=== PATIENT | female | born 1965 | race Caucasian/White ===

== ENCOUNTER → 2016-11-08 | Outpatient (CLI) | payer BC, OTHER ==
[~2016-11-08] VITALS: Ht 165.1 cm; Wt 103.0 kg
[~2016-11-08] MED LIST: COLACE 100 MG100 MG PO; FLEXERIL PO; GILENYA0.5 MG PO; HYDROCODON-ACE1 EAC5 PO; HYDROCODONE-AP1 EAC6 PO; NORCO 5-325 TA1 EACH PO; OXYCODONE PO; OXYCONTIN10 M1 PO; VITAMIN B-12500 MCG PO; VITAMIN D-32000 UNIT PO
--- NOTE | ~2016-11-08 | HPC ---
[facility] [place] [address] PAIN MANAGEMENT CONSULTATION Name: GABE PERSAUD Room #: REG [facility] Tirso#: [id number] Admission: 11/08/16 Attend Phys: Terrence Olivares DO Discharge: Date of : 61 Report #: [id number] THIS REPORT FOR: //name// CC: [facility] physician/PCP Sanjay Olivares The patient is a 51-year-old female seen in consultation at the request of Dr. Siegel's office for evaluation of pain to low back, left side, nonradiating, exacerbated with sitting and some relief with ice. The patient had prior been seen by Dr. Patrick Sheridan, had left-sided radiofrequency neurolysis at L2, L3, L4 and L5 back in April of 2015. Progressed to have lumbar decompression, left side L4-L5 with fusion L4 through L5, 06/13/2015. The patient notes after about 6 months, pain improved. She had good relief for about 6 months and then pain has recurred again. This is in the low back, left side, nonradiating. She uses a cane in her right hand, though she does have a long history of multiple sclerosis and uses a cane both for axial back pain as well as some weakness and multiple sclerosis. She describes constant aching pain that she rates anywhere from 7-10 on a 0-10 visual analog scale. REVIEW OF SYSTEMS: Complete review of systems attached to chart and gone over with the patient. She is single. She does not smoke, drink alcohol to excess. Long history of multiple sclerosis, currently takes Gilenya for same. Prior history of ulcerative colitis though this was treated conservatively and she has really been fairly symptomatic for quite some time. She has had multiple orthopedic surgeries, list is attached to the chart. 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 She has continued to work despite pain, though she has lost some time secondary to surgeries. She notes that sitting at work, however, does significantly exacerbate her pain. Pain impact score averages about 5.2 for all indices queried. PHYSICAL EXAMINATION: Reveals a 5 feet 5 inches, 220 pound female, BMI is 37.8 kilograms per meter squared. Blood pressure is within normal limits, pulse is 78, respirations 16. Cranial nerves 2-12 are grossly intact. Pupils are equal, reactive to light and accommodation. Extraocular muscles are intact. Thyroid is enlarged, no nodules are noted. Heart is regular and rhythmical with a grade 2/6 systolic ejection murmur. Lungs are clear to auscultation. Has an endomorphic build. Upper extremity strength is preserved. Rises from chair using armrest, markedly antalgic gait. Tender in the low back from about L4 down bilaterally. Left leg is diminished in strength compared to the right, perhaps 3/5 to all muscle groups tested, 4/5 on the right side. She notes this is chronic and she notes it was concurrent with the onset of her multiple sclerosis. Patellar reflex 1/4 on the right, 2/4 on the left. [place] [address] [address] PAIN MANAGEMENT CONSULTATION Name: GABE PERSAUD Angel Room #: REG BILLIE Chahal#: [id number] Admission: 11/08/16 Attend Phys: Terrence Olivares DO Discharge: Date of : 61 Report #: [id number] reflexes are symmetric. Straight leg raise is negative. Osmar test is grossly positive on left. Diffuse tenderness across the low back. Pain is exacerbated with forward bending. DIAGNOSTIC STUDIES: Include MRI of the lumbar spine from 07/17/2015 noting L4-L5 pedicle screws with fixation. L5-S1 has facet degenerative changes. No significant stenosis is noted. There is some mild narrowing at L4-L5. ASSESSMENT: Symptomatic lumbar spondylosis, lumbosacral spondylosis in a patient status post lumbar decompressive laminectomy and fusion at L4-L5. RECOMMENDATIONS: I had a long discussion with the patient today about therapeutic options. I believe she would benefit from bilateral L5-S1 facet joint and left SI joint injection under fluoroscopy. We will seek authorization for same. If this affords correction relief, we will refer the patient to physical therapy for core strengthening. If this affords only transient relief, we can move forward with medial branch dorsal rami diagnostic block (bilateral L4 and L5 along with left-sided L5, S1, S2 medial branch dorsal rami and consideration of radiofrequency neurolysis of same. Thank you for allowing me to participate. We also discussed spinal cord stimulator as a possible therapeutic option for treatment of ongoing axial pain status post lumbar decompressive laminectomy. Thank you for allowing me to participate in the patient's care. I will keep you abreast of her progress. We will presently seek authorization for bilateral L5-S1 facet joint and left SI joint injection under fluoroscopy at next visit. <ELECTRONICALLY SIGNED> By: Terrence Olivares DO 11/13/16 1607 1212 1331 Terrence Olivares DO /nt
== END | disposition home or self-care (01) ==
LOC: PAIN 10-25 11:38
DX: M47.896 Other spondylosis, lumbar region (principal); M54.5 Low back pain; Z98.890 Other specified postprocedural states

== ENCOUNTER → 2016-11-29 | Outpatient (CLI) | payer BC, OTHER ==
[~2016-11-29] VITALS: Ht 162.6 cm; Wt 102.4 kg
--- NOTE | ~2016-11-29 | HPC ---
[facility] [place] [address] PAIN MANAGEMENT CONSULTATION Name: GABE PERSAUD Room #: REG [facility] Tirso#: [id number] Admission: 11/29/16 Attend Phys: Terrence Olivares DO Discharge: Date of : 61 Report #: [id number] THIS REPORT FOR: //name// CC: [facility] physician/PCP Terrence Olivares The patient is a 51-year-old female previously seen in the pain clinic 11/08/2015. She was seen in consultation at that time. Diagnosed with symptomatic lumbar spondylosis, lumbosacral spondylosis, status post lumbar decompressive laminectomy requiring complex medication management. The patient presents to pain clinic today for bilateral L5-S1 and left SI joint injection under fluoroscopy. She is also requesting that I take over management of her opiate, which has been hydrocodone 5/325 up to [address] Siegel's office. We did briefly discuss risks and concerns of opiate habituation, tolerance, etc. I will renew her prescription today, hydrocodone 5/325, 90 tablets, one tablet 3 times a day with no refill. Follow up in 1 month for reevaluation. We will specifically review an opiate consent to treat contract at that time. 1. ASSESSMENT: Lumbosacral spondylosis. PROCEDURE: Bilateral L5-S1 facet joint injection under fluoroscopy. DESCRIPTION OF PROCEDURE: After written informed consent was obtained, the patient was taken to the fluoroscopy suite and placed in prone position. After sterile prep and drape, skin wheal was raised. Two 22-gauge stylet needle was placed to contact the posterior inferior aspect of the left L5-S1 and right L5-S1 facet joint. AP and lateral projections showed good needle placement. Negative aspiration was accomplished. A 20 mg triamcinolone plus 1 mL of 0.5% preservative-free bupivacaine was injected at each site. [place] was removed, attention was directed at the left SI joint. 2. ASSESSMENT: Lumbosacral spondylosis, SI joint dysfunction. PROCEDURE: Left SI joint injection under fluoroscopy. DESCRIPTION OF PROCEDURE: After initial bilateral L5-S1 facet joint injection was accomplished attention was then directed at the left SI joint. This was cleansed in the original skin prep, skin wheal with Xylocaine was raised. A 22-gauge stylet needles was placed to contact the inferior aspect of the left SI joint. Negative aspiration was accomplished. 40 mg triamcinolone plus 2 mL of 0.5% preservative-free bupivacaine was injected into and around the joint. [place] removed. The area was cleansed, Band-Aids applied. The patient was allowed to ambulate to recovery room, monitored for an appropriate period of time, discharged in good and stable condition, noting dramatic improvement of baseline pain, in fact noting pain is generally absent on discharge. We will have the patient follow up in about 3-4 weeks for reevaluation. If she has [address] [address] PAIN MANAGEMENT CONSULTATION Name: GABE PERSAUD Room #: REG [facility] Chahal#: [id number] Admission: 11/29/16 Attend Phys: Terrence Olivares DO Discharge: Date of : 61 Report #: [id number] ongoing relief, we will refer to physical therapy for core strengthening. If she only gets transient relief with this injection, we will consider moving forward with medial branch dorsal rami diagnostic blocks and RFL. She currently had this prior to her back surgery several years ago and did have about 9 months overall relief. <ELECTRONICALLY SIGNED> By: Terrence Olivares DO 12/02/16 1228 1650 0526 Terrence Olivares DO /nt
[2016-11-29 14:47] VITALS: BP 143/88
== END | disposition home or self-care (01) ==
LOC: PAIN 11-15 07:12
DX: M53.3 Sacrococcygeal disorders, not elsewhere classified (principal); M47.817 Spondylosis without myelopathy or radiculopathy, lumbosacral region
CPT/HCPCS: 64493; G0260

== ENCOUNTER → 2017-01-16 | Outpatient (CLI) | payer BC, OTHER ==
[~2017-01-16] VITALS: Ht 165.1 cm; Wt 98.7 kg
--- NOTE | ~2017-01-16 | HPC ---
[address] [place] [address] PAIN MANAGEMENT CONSULTATION Name: GABE PERSAUD Angel Room #: REG BILLIE Chahal#: [id number] Admission: 01/16/17 Attend Phys: Terrence Olivares DO Discharge: Date of : 61 Report #: [id number] THIS REPORT FOR: //name// CC: [facility] physician/PCP Vesta Olivares The patient is a 51-year-old female. Prior seen in the pain clinic on 12/30/2016. The patient had initially been seen in consultation on 11/08/2016, diagnosed with symptomatic lumbar spondylosis, lumbosacral spondylosis, status post lumbar decompressive laminectomy (L4-L5 fusion). We progressed to perform bilateral L5-S1 facet joint and left SI joint injections on 11/29/2016. The patient returned to the pain clinic on 12/30/2016 noting nearly 100% relief for 2-1/2 weeks. Pain had recurred primarily left-sided. I performed left L4, L5, S1 and S2 medial branch dorsal rami diagnostic blocks. The patient returned to the pain clinic today. We had a prolonged visit from 10:10-10:35, reviewing interval issues and discussing therapeutic options. The patient notes that the prior diagnostic block afforded near 100% relief for several hours and pain began to recur. The patient notes pain is in the low back, left greater than right. She has used nonsteroidal anti-inflammatory medications as much as she can, however, they do cause gastritis and she has to use them on a more intermittent basis. She has used muscle relaxers and analgesic (Flexeril and hydrocodone) on a p.r.n. basis. She has continued to do physical therapy, stretching exercises that she had learned from organized physical therapy sessions prior to her back surgery in June 2015. Currently, the patient notes pain to 7/10, again fairly constant since her fusion in June 2015, left much worse than right. PHYSICAL EXAMINATION: Shows a pleasant 51-year-old female, BMI is 36.2 kilograms per meter squared. Blood pressure 140/95, pulse 83, respirations 16. She has fairly profound weakness in the left leg to hip flexion, literally 1/5 strength. Lower extremity extension and dorsiflexion is about 3/5 on the left side. The right leg is fairly robust with 4/5 strength to hip flexion, lower extremity extension and dorsiflexion, plantarflexion. The patient is concerned that this may be an exacerbation of her multiple sclerosis or simply a radicular component. Reviewed diagnostic findings, MRI had been accomplished on 07/17/2015, noting pedicle screws and posterior luz fixation at L4-L5 and L5-S1, noted moderate disk bulging with endplate degenerative changes, L4-L5 noted surgical changes primarily left-sided. ASSESSMENT: [facility] [address] [place] [address] PAIN MANAGEMENT CONSULTATION Name: GABE PERSAUD Angel Room #: REG BILLIE Chahal#: [id number] Admission: 01/16/17 Attend Phys: Terrence Olivares DO Discharge: Date of : 61 Report #: [id number] 1. Symptomatic lumbar radiculopathy, status post decompressive laminectomy. 2. Component of lumbar spondylosis and lumbosacral spondylosis. RECOMMENDATION: Had long discussion with the patient today about therapeutic options. I strongly recommend she follow up with her neurosurgeon regarding the increasing weakness in the left hip flexor. Again, she has some compromise at the L4-L5 disk space subsequent to her fusion. She may have increasing scar tissue here. May benefit from an MRI with and without contrast, however, given the fairly significant weakness, I would want to ensure that there is no other demyelinating issue. An EMG may yield more information. From a pain standpoint, she shows significant pain in the left low back compatible with primarily L5-S1 facet arthrosis, lumbar spondylosis. Given the good relief with the L4-L5 medial branch dorsal rami diagnostic block, we have elected to move forward with neurolysis of same, authorization code from [facility] is [id number]. They have denied radiofrequency neurolysis for the SI component, dorsal rami at S1 and S2. The patient was discharged in good and stable condition today after prolonged visit, spent reviewing current issues. We will plan on moving forward with RFL left L4-L5 medial branch dorsal rami next week and have patient followup with her neurologist regarding increasing weakness in the left thigh. By: 1522 0011 Terrence Olivares DO /nt
== END | disposition home or self-care (01) ==
LOC: PAIN 06:36
DX: M47.896 Other spondylosis, lumbar region (principal); G89.29 Other chronic pain; M47.897 Other spondylosis, lumbosacral region; Z98.890 Other specified postprocedural states

== ENCOUNTER → 2017-01-24 | Outpatient (CLI) | payer BC, OTHER ==
[~2017-01-24] VITALS: Ht 165.1 cm; Wt 100.8 kg
--- NOTE | ~2017-01-24 | HPC ---
[facility] [place] [address] PAIN MANAGEMENT CONSULTATION Name: GABE PERSAUD Room #: REG BILLIE Chahal#: [id number] Admission: 01/24/17 Attend Phys: Terrence Olivares DO Discharge: Date of : 61 Report #: [id number] THIS REPORT FOR: //name// CC: [facility] physician/PCP Terrence Olivares The patient is a 51-year-old female being treated for lumbar spondylosis, history of lumbar radiculopathy secondary to spinal stenosis with an L4-L5 fusion, SI joint dysfunction. She has prior had a diagnostic medial branch blocks 11/29, 12/30. We reviewed 01/16/2017 therapeutic intervention. She has pain coming from SI and L5-S1 facet joint. Current insurer [employer] will not allow RF of the SI joint; however, to have allowed us to proceed with medial branch dorsal rami lesioning at L4-L5 intervening the L5-S1 joint. I think this is at least large part of the pain generator. The patient presents to pain clinic today for this procedure. She understands risks of lack of efficacy, increased pain and weakness. She does have ongoing weakness in the left leg by physical exam prior to the procedure. She rates the pain as 7 on a 0-10 visual analog scale. PROCEDURE: Radiofrequency lesioning L4-L5 medial branch dorsal rami. INDICATIONS: Symptomatic lumbar spondylosis, left L5-S1. PROCEDURE: After written informed consent was obtained, the patient was taken to the fluoroscopy suite and placed in prone position. After sterile prep and drape, 2 skin wheals were raised. 15 mm RFK needles were placed to contact the left sacral alar notch, second needle was placed lateral to the superior articular process of L5 at the L4-L5 facet joint. AP and lateral projections showed good needle placement adjacent to the L4 medial branch dorsal rami and L5 dorsal rami nerves. An appropriate interventions, sensory and motor testing was accomplished. A 1 mL of 1% preservative-free Xylocaine was injected through each needle. Both needles were heated to 80 degrees centigrade for 90 seconds. A 20 mg triamcinolone plus 1 mL of 0.5% preservative-free bupivacaine was injected through each needle. Both needles removed. The area was cleansed, Band-Aids applied. The patient monitored for an appropriate period of time, discharged in good and stable condition. Fluoroscopy time was 12 seconds. Followup as needed. <ELECTRONICALLY SIGNED> By: Terrence Olivares DO 01/27/17 1130 1054 1315 Terrence Olivares DO /nt
[2017-01-24 14:48] VITALS: BP 135/78
== END | disposition home or self-care (01) ==
LOC: PAIN 07:31
DX: M47.817 Spondylosis without myelopathy or radiculopathy, lumbosacral region (principal); M19.90 Unspecified osteoarthritis, unspecified site

== ENCOUNTER → 2017-02-07 | Outpatient (CLI) | payer BC, OTHER | LOC: RAD 15:36 | DX: M54.16 Radiculopathy, lumbar region (principal); M54.9 Dorsalgia, unspecified ==

== ENCOUNTER → 2017-02-18 | Outpatient (CLI) | payer BC, OTHER | END | disposition home or self-care (01) | LOC: RAD 08:31 | DX: M48.06 Spinal stenosis, lumbar region (principal) ==

== ENCOUNTER → 2017-02-21 | Outpatient (CLI) | payer BC, OTHER ==
[~2017-02-21] VITALS: Ht 165.1 cm; Wt 96.6 kg
--- NOTE | ~2017-02-21 | HPC ---
[facility] [place] [address] PAIN MANAGEMENT CONSULTATION Name: GABE PERSAUD Angel Room #: REG BILLIE Chahal#: [id number] Admission: 02/21/17 Attend Phys: Terrence Olivares DO Discharge: Date of : 61 Report #: [id number] THIS REPORT FOR: //name// CC: [facility] physician/PCP Terrence Olivares The patient is a very pleasant 51-year-old female, being treated for symptomatic lumbar radiculopathy status post decompressive laminectomy and fusion with a component of lumbar spondylitic pain. I initially saw the patient in consultation in November of this year. With fusion at L4-L5 and some low back pain, we talked about possible component of the axial pain coming from facet pain from L5-S1. She had prior had radiofrequency neurolysis in 2014 of pretty much all of her lumbar spine. She progressed to have the aforementioned L4-L5 fusion with anterior disk spacer, 06/13/2015. She notes pain improved initially, but she had had some left low back pain and some weakness in the left leg, though she attributed the weakness to her longstanding multiple sclerosis. I proceeded on 11/29/2016, to perform left L5-S1 and SI joint injections. She had good relief with this, though it was transient on 12/30/2016. I proceeded with left L4, L5, S1-S2 medial branch dorsal rami diagnostic block which gave her good relief. We had planned on moving forward with radiofrequency neurolysis of the innervation of the left L5-S1 and left SI joint. Unfortunately, insurance company only authorized the L5-S1 neurolysis, so we progressed on 01/24/2017 with left L4-L5 medial branch dorsal rami neurolysis. He returns to pain clinic today noting she had some good relief transiently with local anesthetic, but really no nursing home relief overall. Bigger complaint is not only left low back pain, but ongoing left radicular pain with weakness in the left thigh. I ordered a CT which was accomplished on 02/18/2017. We reviewed the CT myelogram today. It shows postoperative changes of the interval posterior lumbar fusion, left laminectomy and diskectomy at L4-L5 with bilateral luz and pedicle screw fixation hardware intact, without evidence of hardware failure. This was compared to a prior CT from 05/30/2015. The reading, however, goes on. Note that there is a hyperdense disk prosthesis at the L4-L5 level which "has an unusual appearance, appearing somewhat rotated clock lamas with a portion of the spacer rotated to the left posterolateral cortical margin and extending into the left lateral recess. There was associated abutment of the left ventral thecal sac and probable abutment of the central left L5 nerve root. I reviewed these findings with the patient today. PHYSICAL EXAMINATION: Again notes pleasant 51-year-old female, BMI is 35.4 kilograms per meter squared. Using a cane in her right hand. Vital signs show modest hypertension at 142/94, pulse is 83, respirations are 20[place] [address] PAIN MANAGEMENT CONSULTATION Name: AURORAVIKASGABE Room #: REG BILLIE Chahal#: [id number] Admission: 02/21/17 Attend Phys: Terrence Olivares DO Discharge: Date of : 61 Report #: [id number] chair using armrest. Antalgic gait, diffuse tenderness across the low back, significant weakness of his left hip flexion, lower extremity extension, about 3/5 versus 4-5/5 on the right. Lower extremity extension about 3/5 as well. Similarly stronger on the right. ASSESSMENT: Symptomatic lumbar radiculopathy, sacroiliac joint dysfunction, lumbar spondylosis, status post L4-L5 fusion and disk replacement. RECOMMENDATION: I suggested she follow up with Dr. Siegel regarding the disk prosthesis. This may or may not be amenable to revision. If pain continues as a problem, we talked about therapeutic options including medication management (she currently takes low dose hydrocodone 5/325 infrequently and p.r.n. Flexeril, does not require renewal of these prescriptions). We talked about spinal cord stimulator as possible therapeutic option to help with pain management. The patient was discharged in good and stable condition. She was seen for greater than 25 minutes from 15:08 to 15:40. Greater than 50% of the 25+ minute visit was spent counseling the patient. <ELECTRONICALLY SIGNED> By: Terrence Olivares DO 02/24/17 1538 1604 2034 Terrence Olivares DO /nt
[2017-02-21 15:00] VITALS: BP 142/94
== END ==
LOC: PAIN 06:56
DX: M47.26 Other spondylosis with radiculopathy, lumbar region (principal); M96.1 Postlaminectomy syndrome, not elsewhere classified; I10 Essential (primary) hypertension; M53.3 Sacrococcygeal disorders, not elsewhere classified

== ENCOUNTER → 2017-04-10 | Outpatient (CLI) | payer BC, OTHER ==
[~2017-04-10] VITALS: Ht 165.1 cm; Wt 98.0 kg
[~2017-04-10] MED LIST changes: +HYDROCODONE-APA1 TA1 PO
--- NOTE | ~2017-04-10 | HPC ---
[facility] [address] [place] [address] PAIN MANAGEMENT CONSULTATION Name: GABE PERSAUD Room #: REG [facility] Tirso#: [id number] Admission: 04/10/17 Attend Phys: Terrence Olivares DO Discharge: Date of : 61 Report #: [id number] THIS REPORT FOR: //name// CC: [facility] physician/PCP Terrence Olivares The patient is a 51-year-old female, typically treated for chronic pain syndrome, status post lumbar decompressive laminectomy, history of multiple sclerosis, requiring complex medication management. She had an extensive fusion at L4-L5 on 06/13/2015, ongoing back pain. We did a left L4-L5 transforaminal epidural injection with transient improvement on 01/24/2017. She was last seen in the pain clinic on 02/21/2017, continued on low dose hydrocodone 5/325. She returns to the pain clinic today stating she had followed up with Dr. Saroj Hoffmann, he is planning on a fairly significant surgical revision of the current hardware in the lumbar spine. This is scheduled for 05/07/2017. She notes pain is a 6/10, low lumbar, left side worse than right, down the left leg to the knee. Pain is chronic, aching, burning sensation. Exacerbated with standing and walking. PHYSICAL EXAMINATION: Shows a 51-year-old female, BMI is 36 kg/m2. Vital signs are stable as noted on the EMR. Rises from chair using armrest. She uses a cane. Diffuse tenderness across the low back. No discrete trigger points are noted. We reviewed the fact that opiate medications are being used to provide analgesia adequate to support activities of daily living, not attempting to achieve a specific pain score on the 0-10 Visual Analog Scale. The current opiate medications are providing sufficient analgesia to allow the patient to participate in activities of daily living. The patient is not exhibiting any aberrant behavior suggestive of drug diversion. The patient is not having any adverse reactions to medications. The patient is not suffering from daytime somnolence or mental acuity changes. The patient is managing opiate-induced constipation with appropriate oxwq-pmu-seiefda agents and dietary considerations. The patient was counseled on concern for caution with operating a motor vehicle while using opiate medications. A physical exam was performed and the patient's functional status was evaluated. All patients with back pain were advised against the bed rest greater than 4 days and were advised to return to normal activities. Pain score assessment was noted and the treatment plan was reviewed with the patient. All current medications, both prescribed and OTC were reviewed and reconciled on the electronic medical record. Tobacco screening was accomplished and smoking cessation was advised when indicated. BMI was noted and diet/exercise modification was recommended for all patients following outside normal parameters. [address] [address] PAIN MANAGEMENT CONSULTATION Name: GABE PERSAUD Angel Room #: REG [facility] Tirso#: [id number] Admission: 04/10/17 Attend Phys: Terrence Olivares DO Discharge: Date of : 61 Report #: [id number] I reviewed with the patient today their responsibilities to safeguard prescription medications, reviewed their responsibility to utilize medications only as prescribed by the physician. They are to seek and receive pain medications only from 1 physician group ( [facility]). They are to use 1 pharmacy and keep the clinic informed if they change pharmacies. Their responsibilities include making followup visits in a timely fashion and to avoid abrupt discontinuation of medication usage. Their responsibilities further include bringing their medications (bottles from the pharmacy with residual pills) to the visit for possible confirmation of pill counts and the patient understands it is their responsibility to submit to random drug screens to ensure both that the medications prescribed are present, and that no other controlled substances are present. All prescriptions provided today were generated electronically. ASSESSMENT AND PLAN: Symptomatic lumbar radiculopathy, status post decompressive laminectomy; comorbidity includes multiple sclerosis, requiring complex medication management. RECOMMENDATIONS: We have elected to continue hydrocodone 5/325 one tablet up to 3 times a day. I have taken the liberty of writing for a 4-week release prescription (actually release 05/05/2017) for postoperative pain, hydrocodone 7.5/325 one tablet up to 4 times a day, limit 120 tablets. We will follow up 1 month after her back surgery, we will try and wean back to hydrocodone 5/325 at that time. Discharged in good and stable condition. <ELECTRONICALLY SIGNED> By: Terrence Olivares DO 04/11/17 0948 1514 1552 Terrence Olivares DO /nt
[2017-04-10 14:04] VITALS: BP 141/87
== END ==
LOC: PAIN 07:08
DX: M54.16 Radiculopathy, lumbar region (principal); G35 Multiple sclerosis

== ENCOUNTER → 2018-01-02 | Outpatient (CLI) | payer BC, OTHER ==
[~2018-01-02] VITALS: Ht 165.1 cm; Wt 94.8 kg
[~2018-01-02] MED LIST changes: +LIDODERM1 EACH TRANSDERM
--- NOTE | ~2018-01-02 | HPC ---
[facility] [place] [address] PAIN MANAGEMENT CONSULTATION Name: GABE PERSAUD Room #: REG BILLIE Chahal#: [id number] Admission: 01/02/18 Attend Phys: Terrence Olivares DO Discharge: Date of : 61 Report #: [id number] THIS REPORT FOR: //name// CC: [facility] physician/PCP Terrence Olivares The patient is a 52-year-old female, prior seen for symptomatic lumbar radiculopathy status post decompressive laminectomy, last seen in the pain clinic 08/21/2017. The patient uses hydrocodone p.r.n. 7.5/325. She had a revision of her lumbar surgery 05/07/2017, by Dr. Saroj Hoffmann. She notes symptoms are generally improved, but she is having some increasing pain in the low back. Radicular symptoms are fairly nominal, but she has point tenderness on the left mid back over the superior aspect of the L4-L5 fusion and left low back, difficult to tell if this is the SI joint or the inferior aspect of the fusion. Pain is exacerbated with rotating and sidebending. Nominally positive Osmar test on the left. Pain is exacerbated with lumbar spine with range of motion. Lower extremity strength is preserved. Straight leg raise is negative. We reviewed the fact that opiate medications are being used to provide analgesia adequate to support activities of daily living, not attempting to achieve a specific pain score on the 0-10 Visual Analog Scale. The current opiate medications are providing sufficient analgesia to allow the patient to participate in activities of daily living. The patient is not exhibiting any aberrant behavior suggestive of drug diversion. The patient is not having any adverse reactions to medications. The patient is not suffering from daytime somnolence or mental acuity changes. The patient is managing opiate-induced constipation with appropriate ogtp-khe-vmnaylv agents and dietary considerations. The patient was counseled on concern for caution with operating a motor vehicle while using opiate medications. A physical exam was performed and the patient's functional status was evaluated. All patients with back pain were advised against the bed rest greater than 4 days and were advised to return to normal activities. Pain score assessment was noted and the treatment plan was reviewed with the patient. All current medications, both prescribed and OTC were reviewed and reconciled on the electronic medical record. Tobacco screening was accomplished and smoking cessation was advised when indicated. BMI was noted and diet/exercise modification was recommended for all patients following outside normal parameters. I reviewed with the patient today their responsibilities to safeguard prescription medications, reviewed their responsibility to utilize medications only as prescribed by the physician. They are to seek and receive pain medications only from 1 physician group ( [facility]). They are to use 1 pharmacy and keep the clinic informed if they change pharmacies. Their responsibilities include making followup visits in a timely fashion and to avoid abrupt discontinuation of medication usage. Their responsibilities further [address] [address] PAIN MANAGEMENT CONSULTATION Name: CORIGABE Angel Room #: REG [facility] Tirso#: [id number] Admission: 01/02/18 Attend Phys: Terrence Olivares DO Discharge: Date of : 61 Report #: [id number] include bringing their medications (bottles from the pharmacy with residual pills) to the visit for possible confirmation of pill counts and the patient understands it is their responsibility to submit to random drug screens to ensure both that the medications prescribed are present, and that no other controlled substances are present. All prescriptions provided today were generated electronically. We reviewed the patient's therapeutic options. We have elected to seek authorization for right L3-L4 and left L5-S1 facets. We may also seek authorization for left SI joint injection if the facet joints do not provide sufficient relief. ASSESSMENT: M47.816, lumbar spondylosis without myelopathy; M47.817, lumbosacral spondylosis without myelopathy status post lumbar fusion L4-L5. The patient was provided prescription for hydrocodone 7.5/325, limit 100 tablets, she takes this q.4-6 hours, typically on a nondaily basis. <ELECTRONICALLY SIGNED> By: Terrence Olivares DO 01/05/18 0925 1519 1917 Terrence Olivares DO /nt
[2018-01-02 13:25] VITALS: BP 133/81
== END ==
LOC: PAIN 11-27 06:41
DX: M47.26 Other spondylosis with radiculopathy, lumbar region (principal); M47.817 Spondylosis without myelopathy or radiculopathy, lumbosacral region

== ENCOUNTER → 2018-01-08 | Outpatient (CLI) | payer BC, OTHER ==
[~2018-01-08] VITALS: Ht 165.1 cm; Wt 94.8 kg
[~2018-01-08] MED LIST changes: +GABAPENTIN 100100 MG PO; +TRAMADOL 50 MG50 MG PO
--- NOTE | ~2018-01-08 | HPC ---
[facility] [place] [address] PAIN MANAGEMENT CONSULTATION Name: GABE PERSAUD [id number] Admission: 01/08/18 Attend Phys: Terrence Olivares DO Discharge: Date of : 61 Report #: [id number] THIS REPORT FOR: //name// CC: [facility] physician/PCP Terrence Olivares PROCEDURE: Left L3-L4 and right L5-S1 facet joint injection under fluoroscopy. INDICATION: Symptomatic lumbosacral spondylosis, lumbar spondylosis in a patient status post fusion L4-L5. (M47.816, M47.817). The patient was seen in the pain clinic on 01/02/2018, ongoing axial back pain. We sought authorization for aforementioned procedure. The patient has ongoing back pain; however, on the left at the superior aspect of the fusion and lower on the right at the inferior aspect of the fusion. PROCEDURE: Left L3-L4 and right L5-S1 facet joint injection under fluoroscopy. DESCRIPTION OF PROCEDURE: After written informed consent was obtained, the patient was taken to the fluoroscopy suite and placed in the prone position. After sterile prep and drape, skin wheal was raised. A 22-gauge stylet needle was placed to contact the ____ aspect of the left L3-L4 facet. AP and lateral projections showed good needle placement. 1 mL of Omnipaque was injected, which showed spread within the joint; 20 mg of triamcinolone plus 1 mL of 0.5% preservative-free bupivacaine was injected. The needle was removed. The C-arm was turned obliquely to the right. In the same prep, skin wheal with Xylocaine was raised and a 22-gauge needle was placed to contact the inferior aspect of the right L5-S1 facet joint. Negative aspiration was accomplished. 1 mL of Omnipaque was injected, which showed spread within the joint. This was followed with 20 mg of triamcinolone plus 1 mL of 0.5% preservative-free bupivacaine. The needle was removed. The area was cleansed. Band-Aid was applied. The patient monitored for an appropriate period of time and discharged in good and stable condition. Fluoroscopy time was under 30 seconds. Followup in 2 weeks to evaluate efficacy. <ELECTRONICALLY SIGNED> By: Terrence Olivares DO 01/09/18 0704 1607 2238 Terrence Olivares DO /nt
[2018-01-08 14:26] VITALS: BP 122/79
== END | disposition home or self-care (01) ==
LOC: PAIN 06:57
DX: M47.817 Spondylosis without myelopathy or radiculopathy, lumbosacral region (principal); M47.816 Spondylosis without myelopathy or radiculopathy, lumbar region; Z88.0 Allergy status to penicillin; Z79.891 Long term (current) use of opiate analgesic

== ENCOUNTER → 2018-02-05 | Outpatient (CLI) | payer BC, OTHER ==
[~2018-02-05] VITALS: Ht 165.1 cm; Wt 84.8 kg
[~2018-02-05] MED LIST changes: -GABAPENTIN 100100 MG PO; -TRAMADOL 50 MG50 MG PO
--- NOTE | ~2018-02-05 | HPC ---
[facility] [place] [address] PAIN MANAGEMENT CONSULTATION Name: GABE PERSAUD Room #: REG [facility] Tirso#: [id number] Admission: 02/05/18 Attend Phys: Terrence Olivares DO Discharge: Date of : 61 Report #: [id number] THIS REPORT FOR: //name// CC: [facility] physician/PCP Terrence Olivares DATE OF SERVICE: 02/05/2018 The patient is a very pleasant 52-year-old female being treated for lumbar and lumbosacral spondylosis requiring complex medication management. She uses occasional hydrocodone 5/325 for breakthrough pain. I did renew that prescription today. She uses 100 tablets, which will last her several months. She is status post lumbar fusion L4-L5 on 05/07/2017 with ongoing back pain, left side above the fusion, right side below the fusion. I did diagnostic block left L3-L4 and right L5-S1 on 01/08/2018. At last visit 01/30/2018 she had noted excellent improvement though transient following the diagnostic block. We elected to repeat diagnostic block, we sought authorization for left L2-L3 and right L4 and L5 medial branch dorsal rami diagnostic blocks. She presents to pain clinic today for said injection. She notes pain continues in the low back, a little higher on the left, lower on the right, exacerbated with any and all movement. PHYSICAL EXAMINATION: Unchanged from presentation. Vital signs stable as noted in the EMR. ASSESSMENT: Symptomatic lumbar and lumbosacral spondylosis. PROCEDURE: Medial branch dorsal rami diagnostic block x 4, left L2-L3 and right L4-L5. PROCEDURE: After informed consent was obtained, the patient was taken to the fluoroscopy suite and placed in prone position. After sterile prep and drape, skin was raised, 22-gauge stylet needle was placed to contact the left L3 and L4 superior articular processes adjacent to the left L2 and L3 medial branch dorsal rami. AP and lateral projections showed good needle placement. A 1 mL of a 50:50 mix of 0.5% preservative-free bupivacaine with 1.5% preservative-free Xylocaine with 1:200,000 epi was injected. Needle was removed. C-arm was turned obliquely to the right and procedure was repeated. Two needles were placed to contact superior articular process of L5 and the right sacral ala notch compatible to the right L4 medial branch dorsal rami and right L5 dorsal rami. AP and lateral projections showed good needle placement. Again, 1 mL of the 50:50 mix was injected. All four needles were removed, the area was cleansed and Band-Aid was applied. The patient was allowed to ambulate to recovery room, monitored for an appropriate period of time. Fluoroscopy time was under [address] [address] PAIN MANAGEMENT CONSULTATION Name: GABE PERSAUD Room #: REG BILLIE Chahal#: [id number] Admission: 02/05/18 Attend Phys: Terrence Olivares DO Discharge: Date of : 61 Report #: [id number] Please note that in recovery room the patient had dramatic improvement of baseline pain. Her pain on admission was a 6 on a VAS, down to 2 on a VAS on discharge. She had a 66% improvement in baseline pain. We will have her call up and leave a note on the nurse line to evaluate duration of pain relief, but given the excellent relief following the diagnostic block we will seek authorization for medial branch dorsal rami neurolysis of all four nerves at next visit. <ELECTRONICALLY SIGNED> By: Terrence Olivares DO 02/09/18 0756 1614 1917 Terrence Olivares DO /nt
[2018-02-05 14:54] VITALS: BP 144/84
== END | disposition home or self-care (01) ==
LOC: PAIN 07:30
DX: M47.816 Spondylosis without myelopathy or radiculopathy, lumbar region (principal); M47.817 Spondylosis without myelopathy or radiculopathy, lumbosacral region

== ENCOUNTER → 2018-02-27 | Outpatient (CLI) | payer BC, OTHER ==
[~2018-02-27] VITALS: Ht 165.1 cm; Wt 84.8 kg
[~2018-02-27] MED LIST changes: +GABAPENTIN 100100 MG PO
--- NOTE | ~2018-02-27 | HPC ---
[place] [address] PAIN MANAGEMENT CONSULTATION Name: GABE PERSAUD Room #: REG [facility] Chahal#: [id number] Admission: 02/27/18 Attend Phys: Terrence Olivares DO Discharge: Date of : 61 Report #: [id number] THIS REPORT FOR: //name// CC: [facility] physician/PCP Terrence Olivares The patient is a very pleasant 52-year-old female being treated for lumbar and lumbosacral spondylosis without myelopathy, status post L4-L5 fusion. She has done well with a left L2-L3 medial branch dorsal rami diagnostic block and right L4-L5 medial branch dorsal rami diagnostic block. The patient presents to the pain clinic today for RFL of same. We discussed risks and benefits including lack of efficacy and increased pain as well as weakness. The patient wished to proceed. PROCEDURE NOTE: After written informed consent was obtained, the patient was taken to the fluoroscopy suite and placed in prone position. After sterile prep and drape, skin wheal was raised and a 10 mm RFK needle was placed to contact the superior articular process of L4 and L3, adjacent to the L2 and L3 medial branch dorsal rami needle on the left. [place] were placed at the right sacral ala notch and at the superior articular process of L5 corresponding to the L5 and L4 medial branch dorsal rami respectively. AP and lateral projections showed good needle placement. Initial impedance, sensory and motor testing was accomplished. Those numbers are on the chart. Each needle was then injected with 1 mL of 1% preservative-free Xylocaine. Each needle was then heated to 80 degrees centigrade for 90 seconds. 10 mg of triamcinolone plus 1 mL of 0.5% preservative-free bupivacaine was injected at each needle. All four needles were removed, the area was cleansed and Band-Aid was applied. The patient monitored for an appropriate period of time, discharged in good and stable condition. Fluoroscopy time was under 30 seconds. Followup is as needed. <ELECTRONICALLY SIGNED> By: Terrence Olivares DO 03/02/18 0829 1526 0342 Terrence Olivares DO /nt
[2018-02-27 14:17] VITALS: BP 133/83
== END | disposition home or self-care (01) ==
LOC: PAIN 07:01
DX: M47.816 Spondylosis without myelopathy or radiculopathy, lumbar region (principal); M47.817 Spondylosis without myelopathy or radiculopathy, lumbosacral region; Z98.890 Other specified postprocedural states; Z88.0 Allergy status to penicillin; Z79.891 Long term (current) use of opiate analgesic

== ENCOUNTER → 2018-03-12 | Outpatient (CLI) | payer BC, OTHER ==
[~2018-03-12] VITALS: Ht 165.1 cm; Wt 95.7 kg
--- NOTE | ~2018-03-12 | HPC ---
[facility] [place] [address] PAIN MANAGEMENT CONSULTATION Name: GABE PERSAUD Room #: REG [facility] Tirso#: [id number] Admission: 03/12/18 Attend Phys: Terrence Olivares DO Discharge: Date of : 61 Report #: [id number] THIS REPORT FOR: //name// CC: [facility] physician/PCP Terrence Olivares The patient is a 52-year-old female, prior seen on 02/27/2018. She is status post lumbar decompression and fusion, L3-L4. She has ongoing axial back pain with facet generated pain to the left at L3-L4 and on the right at L5-S1. She has had very good short term relief with diagnostic blocks done on 02/05/2018 and 01/08/2018. We moved forward with radiofrequency neurolysis at last visit, on the left at L3-L4 and on the right at L4-L5. I am pleased to note that the patient had excellent improvement on the left; however, only nominal relief on the right. I discussed at length with the patient today, given the very good relief with diagnostic blocks I do believe that pain is indeed coming from the facet joints in question. I am pleased that we were able to denervate the left L3-L4 joint. On the right L5-S1 joint, with signal mediated by the right L4 and L5 medial branch dorsal rami nerves, it appears that we did not get adequate coverage with the radiofrequency neurolysis. Again, we know that the RFL lesion is typically 2-3 mm in diameter. Unfortunately, with the diagnostic block, 1 mL of local anesthetic is typically about 7-8 mm diameter. It is not uncommon to have only partial relief with an initial RFL. It is warranted and well documented to repeat the RFL simply on the painful side. We will seek authorization to repeat the right L4 and L5 medial branch dorsal rami RFL. Again, the alternative is to have an extension of the fusion currently L4-L5 to include L5-S1 so as to minimize movement in the painful L5/S1 facet joint . I think this would be significantly impactful from patient morbidity and mortality and would likely be dramatically more expensive for the health insurance provider as well. Today physical exam does note pleasant 52-year-old female, BMI is 35.1 kilograms per meter squared. Blood pressure is nominally elevated at 166/90, pulse 74, respirations are 20. Subjective pain score 6 on a VAS. Again, near 100% relief of the left-sided pain, still ongoing pain in the right lower back. Pain is exacerbated with rotating, sidebending and bending forward. Lower extremity strength is generally preserved. Straight leg raise is negative. ASSESSMENT: 1. Symptomatic lumbosacral spondylosis, right L5-S1 with ongoing pain. 2. Lumbar spondylosis, left L3-L4, excellent relief following neurolysis, medial branch dorsal rami. RECOMMENDATIONS: [address] [address] PAIN MANAGEMENT CONSULTATION Name: CORIGABE Angel Room #: REG BILLIE Chahal#: [id number] Admission: 03/12/18 Attend Phys: Terrence Olivares DO Discharge: Date of : 61 Report #: [id number] We will seek authorization from the patient's third republic[employer] payer to repeat the right L4 and L5 medial branch dorsal rami neurolysis. The patient was discharged in good and stable condition today. With ongoing axial back pain, we are hopeful that we can decrease transmission of the pain signal from the right L5-S1 facet. Incidentally, the patient does complain of ongoing peripheral neuropathy, which has been present since her fusion. She does have some ongoing weakness in the left leg. With concern for increasing paresthesia and concern for a malalignment of the L4-L5 prosthetic disk (again, status post L4-L5 fusion with anterior disk), we will request authorization for an MRI as well. <ELECTRONICALLY SIGNED> By: Terrence Olivares DO 03/16/18 0711 1206 1236 Terrence Olivares DO /nt
[2018-03-12 08:17] VITALS: BP 166/90
== END ==
LOC: PAIN 05:33
DX: M47.897 Other spondylosis, lumbosacral region (principal); M47.896 Other spondylosis, lumbar region

== ENCOUNTER → 2018-04-03 | Outpatient (CLI) | payer BC, OTHER ==
[~2018-04-03] VITALS: Ht 165.1 cm; Wt 95.3 kg
--- NOTE | ~2018-04-03 | HPC ---
[facility] [address] [place] [address] PAIN MANAGEMENT CONSULTATION Name: GABE PERSAUD Room #: REG BILLIE Chahal#: [id number] Admission: 04/03/18 Attend Phys: Terrence Olivares DO Discharge: Date of : 61 Report #: [id number] THIS REPORT FOR: //name// CC: [facility] physician/PCP Terrence Olivares The patient is a very pleasant 52-year-old female being treated for axial back pain, lumbar and lumbosacral spondylosis without myelopathy status post lumbar decompression and fusion with ongoing pain concerns. The patient had done well with left L3-L4 and right L5-S1 facet joint injections. We had progressed with medial branch dorsal rami diagnostic blocks and neurolysis, left L3-L4 and right L5-S1. The left side afforded excellent relief; however, she still has some ongoing pain on the right side. We had requested authorization to repeat the right side RFL. Again, we had reviewed that the diagnostic block of 1 mL of local anesthetic typically covers an area of 7-8 mm diameter. The RFL lesion; however, is typically about 2-3 mm in diameter. It is not uncommon to have only partial relief with an initial RFL. It is warranted and well documented to repeat the RFL on the painful side if patient had good diagnostic blocks and only nominal efficacy with initial RFL. We will plan on repeating that right-sided RFL at medial branch dorsal rami, L4 and L5, we will do a tube position burn rotating the needle 180 degrees. We are still waiting for authorization for this procedure. In the interval, the patient unfortunately fell, suffering a fracture of the right proximal radius. With this she is having some increasing pain. She is scheduled to have ORIF of the proximal right radius this Friday. We will want to wait 2 weeks before proceeding with the radiofrequency neurolytic procedure as we do inject a little steroid at the site and do not want to have it interfere with wound healing. Two weeks should be sufficient. The patient notes ongoing pain, generally treated with hydrocodone 5/325. She had been taking 2 or 3 a day, but with the arm fracture has taken up to 4 a day. No problems with daytime somnolence, mental acuity changes or constipation. Physical exam otherwise shows 52-year-old female, BMI is 34.9 kilograms per meter squared. Blood pressure 122/81, pulse 76, respirations 18. She is wearing immobilizer on the right upper extremity. Diffuse tenderness across the low back, right side. Pain exacerbated with rotating, sidebending and flexion. No radicular symptoms are noted. Well-healed surgical scar compatible with her prior decompressive laminectomy. ASSESSMENT: 1. Right arm pain status post acute fracture, proximal right radius. 2. Ongoing axial back pain, lumbar and lumbosacral spondylosis without [facility] [address] [place] [address] PAIN MANAGEMENT CONSULTATION Name: GABE PERSAUD Angel Room #: REG BILLIE Chahal#: [id number] Admission: 04/03/18 Attend Phys: Terrence Olivares DO Discharge: Date of : 61 Report #: [id number] myelopathy in a patient with prior lumbar decompressive laminectomy and fusion at L4-L5. RECOMMENDATIONS: 1. We will renew hydrocodone 5/325, 120 tablets. 2. We will plan on seeing the patient in 2 weeks for RFL right L4 and L5 medial branch dorsal rami. We will continue to seek authorization for same. <ELECTRONICALLY SIGNED> By: Terrence Olivares DO 04/06/18 0709 [id number] Terrence Olivares DO /nt
[2018-04-03 08:10] VITALS: BP 122/81
== END ==
LOC: PAIN 07:16
DX: M47.27 Other spondylosis with radiculopathy, lumbosacral region (principal); M96.1 Postlaminectomy syndrome, not elsewhere classified

== ENCOUNTER → 2018-04-27 | Outpatient (CLI) | payer BC, OTHER ==
[~2018-04-27] VITALS: Ht 165.1 cm; Wt 94.8 kg
[~2018-04-27] MED LIST changes: +TRAMADOL 50 MG50 MG PO
--- NOTE | ~2018-04-27 | HPC ---
[facility] [place] [address] [place] [address] PAIN MANAGEMENT CONSULTATION Name: GABE PERSAUD Room #: REG BILLIE Chahal#: [id number] Admission: 04/27/18 Attend Phys: Terrence Olivares DO Discharge: Date of : 61 Report #: [id number] THIS REPORT FOR: //name// CC: [facility] physician/PCP Terrence Olivares The patient is a very pleasant 52-year-old female being treated for lumbar and lumbosacral spondylosis without myelopathy status post L4-L5 fusion with pain in the right L5-S1 facet. We had sought authorization to repeat right L4 and L5 medial branch dorsal rami neurolysis, the patient presents to pain clinic today for this. We had prior done left L3 and L4 medial branch dorsal rami neurolysis for the L4-L5 facet joint with good improvement of that left side. She presents to pain clinic today for the inferior right lumbosacral spondylosis. PROCEDURE: Right L4 and L5 medial branch dorsal rami neurolysis. PROCEDURE NOTE: After written informed consent was obtained, the patient was taken to fluoroscopy suite, placed in prone position. After sterile prep and drape, skin wheal was raised. A 10-mm RFK needle was placed to contact the right sacral ala notch. Second needle was placed adjacent to the superior articular process of L5, lateral to the L4-L5 facet joint. AP and lateral projections showed good needle placement. Initial impedance, motor and sensory testing was accomplished. Numbers were appropriate. They are on the chart. 1 mL of 1% preservative-free Xylocaine was injected through each needle. Each needle was heated to 80-degrees centigrade for 90 seconds. Each needle was then turned approximately 90-degrees and withdrawn perhaps 1 mm and heated again to 80-degrees centigrade for 60 seconds. A 20 mg triamcinolone plus 1 mL of 0.5% preservative-free bupivacaine was injected through each needle. Both needles were removed. The area was cleansed and Band-Aid was applied. The patient monitored for an appropriate period of time, discharged in good and stable condition. Fluoroscopy time was under 30 seconds. The patient was offered a prescription for tramadol 50 mg q.i.d., 120 tablets with 2 refills. She prior had used a very low dose hydrocodone 5/325 for pain. She is desirous of returning to work and feels the hydrocodone affords too much cognitive impairment. The patient was discharged in good and stable condition. Follow up simply as needed. <ELECTRONICALLY SIGNED> By: Terrence Olivares DO 04/29/18 0725 [id number] [id number] Terrence Olivares DO /nt
[2018-04-27 10:28] VITALS: BP 119/79
== END | disposition home or self-care (01) ==
LOC: PAIN 04-20 06:33
DX: M47.816 Spondylosis without myelopathy or radiculopathy, lumbar region (principal); M47.817 Spondylosis without myelopathy or radiculopathy, lumbosacral region; G89.29 Other chronic pain; Z98.890 Other specified postprocedural states; Z79.899 Other long term (current) drug therapy; Z88.0 Allergy status to penicillin; Z79.891 Long term (current) use of opiate analgesic

== ENCOUNTER → 2018-05-01 | Outpatient (CLI) | payer BC, OTHER | LOC: MRI 09:35 | DX: M54.16 Radiculopathy, lumbar region (principal); M54.5 Low back pain; Z98.890 Other specified postprocedural states ==

== ENCOUNTER → 2018-05-04 | Outpatient (CLI) | payer BC, OTHER ==
[~2018-05-04] VITALS: Ht 165.1 cm; Wt 94.8 kg
--- NOTE | ~2018-05-04 | HPC ---
[facility] [address] [place] [address] PAIN MANAGEMENT CONSULTATION Name: GABE PERSAUD Room #: REG Ashley Tirso#: [id number] Admission: 05/04/18 Attend Phys: Terrence Olivares DO Discharge: Date of : 61 Report #: [id number] THIS REPORT FOR: //name// CC: Wood Agrawal [facility] physician/PCP Vesta Olivares DATE OF SERVICE: 05/04/2018 HISTORY OF PRESENT ILLNESS: The patient is a very pleasant 52-year-old female, long known to the pain clinic, being treated for symptomatic lumbar radiculopathy status post decompressive laminectomy and fusion at L4-L5, history of lumbar spondylosis without myelopathy, lumbosacral spondylosis without myelopathy. She had had excellent relief following diagnostic blocks, left L3-L4, right L5-S1. RFL of the appropriate nerves afforded excellent relief of the left side. She continued with some right-sided pain. We elected to repeat the radiofrequency neurolysis of medial branch dorsal rami L4 and dorsal rami L5 on the right side. This was accomplished on 04/27/2018. I am pleased to note that she returns to pain clinic today reporting pain a 1 on a VAS. We had ordered an MRI of the lumbar spine, this was ultimately accomplished on 05/01/2018. I spent some time today going over the diagnostic findings. It was compared to a prior MRI from 07/17/2015. Again, the posterior fusion with bilateral pedicle screws and hardware was noted at L4-L5. No abnormal fluid collection was noted. There is some bilateral facet arthropathy at L3-L4. No significant central or neural foraminal stenosis is noted. Again, the posterior fusion and laminectomy at L4-L5 are noted. While there is some artifact, it appears there is no central or neural foraminal stenosis. L5-S1 does have a small broad-based posterior disk bulge and bilateral facet arthropathy; however, no significant central stenosis is noted, there is only mild bilateral neural foraminal narrowing noted. Otherwise, the patient reports she is doing very well, axial back pain is fairly nominal. She has tramadol to take for pain. She has a little hydrocodone that she is loathe to use (5/325). She does take gabapentin at a very low dose 100 mg b.i.d. She has used a Lidoderm patch in the past for postherpetic neuralgia. she uses Gilenya for relapsing multiple sclerosis which is relatively quiescent at present. She uses rare Flexeril for muscle spasm. She does take multiple vitamins including D3 and B12. PHYSICAL EXAMINATION: Otherwise unchanged. A pleasant 52-year-old female, BMI is modestly elevated at 34.8 kilograms per meter squared. Blood pressure is 134/90, pulse 79, respirations 14. Alert and oriented to person, place and time, judged to be a reasonable historian. She has had external immobilizer on [address] [address] PAIN MANAGEMENT CONSULTATION Name: GABE PERSAUD Angel Room #: REG BILLIE Chahal#: [id number] Admission: 05/04/18 Attend Phys: Terrence Olivares DO Discharge: Date of : 61 Report #: [id number] her right upper extremity for a prior forearm fracture, which is resolving nicely. Rises from the chair using armrest. Gait is tandem. Lower extremity strength is preserved. I am pleased to note that axial back pain is nominal at this time. Range of motion is modestly limited, but rotation and sidebending do not exacerbate pain as we had noted prior to the RFL (again, pain was on contralateral side, above the fusion on the left L4-L5, below the fusion on the right at L5-S1). The patient expressed desire to transfer her care to [facility]. I suggested she follow up with Dr. Wood Agrawal for consideration for further intervention, i.e., a repeat RFL if and when symptoms return (we reviewed with the patient that statistically radiofrequency neurolysis affords relief for anywhere from 5-15 months with the average being about 10 months). She uses tramadol 3 or 4 a day and hydrocodone 5/325 on a nondaily basis. She does not require prescription for same at present. She does use a very low-dose gabapentin 100 mg b.i.d. As noted only other comorbidities are modestly increased BMI and history of relapsing multiple sclerosis, relatively quiescent at present. Discharged in good and stable condition after a moderately prolonged visit. Greater than 25 minutes was spent reviewing the patient's specific anatomic findings correlating with a plastic model spine and images from the patient's prior diagnostic procedures. Fortunately, no radicular symptoms are noted at this time. Discharged in good and stable condition. <ELECTRONICALLY SIGNED> By: Terrence Olivares DO 05/07/18 0716 [id number] 1341 Terrence Olivares DO /nt
[2018-05-04 08:50] VITALS: BP 134/90
== END ==
LOC: PAIN 06:36
DX: M47.26 Other spondylosis with radiculopathy, lumbar region (principal); M47.817 Spondylosis without myelopathy or radiculopathy, lumbosacral region